=== PATIENT | male | born 1970 | race Caucasian/White ===

== ENCOUNTER → 2016-06-25 | Outpatient (CLI) | payer OTHER ==
[~2016-06-25] MED LIST: ATOR10TA9 PO; GADOBUTROL 10 MMOL/10 ML PFS ONE; LEVO25TA2 PO; VALS320T2 PO
== END | disposition home or self-care (01) ==
LOC: RAD 06:32
PROVIDERS: ATTEND Otolaryngology
DX: H61.393 Other acquired stenosis of external ear canal, bilateral (principal); I67.82 Cerebral ischemia
CPT/HCPCS: 70553; A9585